=== PATIENT | male | born 1995 | race Caucasian/White ===

== ENCOUNTER 2018-02-09 03:40 | Emergency (ER) | payer SELFPAY ==
[2018-02-09] MEDS ORDERED: EPINEPHrine 1 MG/10 ML SYR IV ONE (03:41)
[2018-02-09] MEDS ORDERED: ETOMIDATE 20 MG/10 ML VIAL IV ONE ×2 (03:41→04:48)
[2018-02-09] MEDS ORDERED: SODIUM CHL 0.9% 1000 ML BAG IV ONE (03:41)
[2018-02-09] MEDS ORDERED: LIDOCAINE 1% MPF 2 ML AMPULE ONE (03:51)
[2018-02-09] MEDS ORDERED: NA CHLORIDE 0.9% 1,000 ML ONE (04:03)
[2018-02-09] MEDS ORDERED: TETANUS & DIPHTHERIA TOX,ADULT 0.5 ML VIAL ONE (04:12)
[2018-02-09] MEDS ORDERED: CEFAZOLIN/SWI 1gm 1 GM/10 ML SYR ONE (04:13)
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
[2018-02-09 04:17] LABS: Absolute Lymphocytes (CBC) 2.2 K/uL (0.7-4.9); Absolute Monocytes 0.9 K/uL (0.1-1.3); Absolute Neutrophil 7.7 K/uL (1.8-8.0); Basophils % 0.8 % (0-1.3); Eosinophils % 0.1 % (0-4.4); Hematocrit 41.8 % (39.6-49.0); Lymphocytes % 20.5 % (15.3-44.8); MCH 32.3 pg (27.0-35.0); MCV 93.4 fL (80-100); MPV 9.3 fL (7.6-11.3); Monocytes % 8.2 % (3.3-12.3); RBC Red Blood Cell Count 4.48 M/uL (4.33-5.43)
[2018-02-09] MEDS ORDERED: PROPOFOL 0 MG/0 ML VIAL IV ONE (04:18)
[2018-02-09] MEDS ORDERED: MIDAZOLAM HCL 2 MG/2 ML INJ ONE ×2 (04:18→04:47)
[2018-02-09] MEDS ORDERED: RSI MEDICATION KIT IV ONE (04:19)
[2018-02-09] MEDS ORDERED: LORazepam 2 MG/ML VIAL ONE (04:32)
[2018-02-09 04:51] LABS: BUN Blood Urea Nitrogen 9 mg/dL (7-18); Bicarbonate 22 mmol/L (21-32); Glucose Level 95 mg/dL (74-106); Potassium 3.3 mmol/L (3.5-5.1); Sodium Level 136 mmol/L (136-145)
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
[2018-02-09] MEDS ORDERED: SUCCINYLCHOLINE 20 MG/ML (10 ML) IV ONE (11:59)
== END 2018-02-09 06:34 | disposition short-term general hospital (02) ==
LOC: ER 03:40
DX: S11.81XA Laceration without foreign body of other specified part of neck, initial encounter (principal); W26.0XXA Contact with knife, initial encounter; Y93.G3 Activity, cooking and baking; Y92.9 Unspecified place or not applicable; F17.210 Nicotine dependence, cigarettes, uncomplicated; Z23 Encounter for immunization
CPT/HCPCS: 31500; 36415; 80048; 85025; 90714; 92950; 99285; J0171; J0330; J0690; J2001; J2250; J7030